=== PATIENT | male | born 1985 | race Caucasian/White ===

== ENCOUNTER 2017-02-15 22:07 | Emergency (ER) | payer OTHER ==
[~2017-02-15] VITALS: Ht 175.2 cm; Wt 117.9 kg
[~2017-02-15 22:07] MED LIST: BACTRIM DS 8001 TA1 PO; KEFLEX500 M1 PO; NAPROSYN500 MG PO; PENICILLIN VK500 MG PO; SILVADENE1% T; ULTRAM50 MG PO
== END 2017-02-15 23:39 | disposition home or self-care (01) ==
LOC: ED 22:07
DX: M25.561 Pain in right knee (principal); F17.200 Nicotine dependence, unspecified, uncomplicated